=== PATIENT | female | born 1985 | race Caucasian/White ===

== ENCOUNTER 2020-05-26 05:15 | Inpatient (IN) | payer BC ==
[~2020-05-26 05:15] MED LIST: CITRIC ACID/SODIUM CITRATE 30 ML UNIT-DOSE CUP PO ONE; ELECTROLYTE-148 SOLN 500 ML IV ONE
[2020-05-26] MEDS ORDERED: ELECTROLYTE-148 SOLN 500 ML IV ONE ×2 (05:45→10:06)
[2020-05-26 05:58] LABS: BASO % 0.8 % (0-2.0); EOS % 0.8 % (0-4.5); HEMATOCRIT 35.5 % (32.4-45.2); LYMPH % 22.4 % (8-40); MCH 30.2 pg (25.7-33.7); MCHC 33.7 g/dl (32.0-36.0); MEAN CELL VOLUME 89.5 fl (80-96); MEAN PLT VOLUME 11.3 fl (7.5-11.1); MONO % 7.8 % (3.8-10.2); NEUT % 68.2 % (42.8-82.8); PLATELET COUNT 164 K/MM3 (134-434); RBC 3.97 M/mm3 (3.60-5.2); RDW 13.6 % (11.6-15.6); WHITE BLOOD COUNT 8.8 K/mm3 (4.0-10.0)
[2020-05-26 06:04] VITALS: BMI 32.4
[2020-05-26 06:12] LABS: INR 0.86 (0.83-1.09); PROTHROMBIN TIME (PATIENT) 10.1 SEC (9.7-13.0)
[2020-05-26 06:15] LABS: ACTIVATED PTT 25.4 SECONDS (25.2-36.5)
[2020-05-26 06:18] LABS: BLOOD UREA NITROGEN 7.2 mg/dL (7-18); CALCIUM 8.5 mg/dL (8.5-10.1); CREATININE 0.7 mg/dL (0.55-1.3); POTASSIUM 3.9 mmol/L (3.5-5.1)
[2020-05-26] MEDS ORDERED: OXYTOCIN 20 UNITS in 0.9% NS 20 UNIT/1,000 ML INFUS.BAG IV ONE (08:10)
[2020-05-26] MEDS ORDERED: PHENYLEPHRINE HCL 10 MG/1 ML SINGLE DOSE VIAL ONE (08:11)
[2020-05-26] MEDS ORDERED: ceFAZolin SODIUM 1 GM VIAL ONE (08:11)
[2020-05-26] MEDS ORDERED: morphine SULFATE/PF 0.5 MG/ML (2cc Syringe - QUVA) ONE (08:11)
[2020-05-26] MEDS ORDERED: SODIUM CHLORIDE 0.9% P/F 10 ML VIAL IJ ONE (08:15)
[2020-05-26] MEDS ORDERED: OXYTOCIN 10 UNITS/ML VIAL ONE (08:37)
[2020-05-26] MEDS ORDERED: ePHEDrine SULFATE 50 MG/1 ML AMPULE ONE (08:40)
[2020-05-26] MEDS ORDERED: KETOROLAC TROMETHAMINE 30 MG/1 ML VIAL ONE (09:01)
[2020-05-26] MEDS ORDERED: morphine SULFATE/PF 0.5 MG/ML (2cc Syringe - QUVA) EP ONE (09:13)
[2020-05-26] MEDS ORDERED: ONDANSETRON 4 MG/2 ML VIAL IVPUSH PRN (09:13)
[2020-05-26] MEDS ORDERED: CITRIC ACID/SODIUM CITRATE 30 ML UNIT-DOSE CUP PO ONE (10:06)
[2020-05-26] MEDS ORDERED: IBUPROFEN 600 MG TABLET (FP) PO PRN (10:09)
[2020-05-26] MEDS ORDERED: ACETAMINOPHEN 325 MG TABLET (FP) PO PRN (10:09)
[2020-05-26] MEDS ORDERED: oxyCODONE HCL 5 MG TABLET PO PRN ×2 (10:09)
[2020-05-26] MEDS ORDERED: IBUPROFEN 800 MG/8 ML IJ IVPB PRN (10:09)
[2020-05-26] MEDS ORDERED: METHYLERGONOVINE MALEATE 0.2 MG/1 ML AMP IM PRN (10:09)
[2020-05-26] MEDS ORDERED: SENNOSIDES/DOCUSATE COMBO (SENNA PLUS) TABLET (UD) PO PRN (10:09)
[2020-05-26] MEDS ORDERED: ELECTROLYTE-148 SOLN 1,000 ML IV SCH (10:15)
--- NOTE | 2020-05-26 10:15 | HP ---
Past Medical History - Primary Care Physician PCP:: Hira Garner - Admission Chief Complaint: repeat lt c s , btl History of Present Illness: same History Source: Patient Limitations to Obtaining History: No Limitations - Past Medical History PAPER LATCHER: No: Alzheimer's, CVA, Dementia, Migraine, Multiple Sclerosis, Peripheral Neuropathy, Parkinson's, Seizure, Syncope, TIA, Vertigo, Other Cardiovascular: No: AFIB, Aneurysm, Aortic Insufficiency, Aortic Stenosis, CAD, CHF, Deep Vein Thrombosis, HTN, Hyperlipdemia, VA, Mitral Insufficiency, Mitral Stenosis, Murmur, Pulmonary Hypertension, Other Pulmonary: No: Asthma, Bronchitis, Cancer, COPD, O2 Dependent, Pneumonia, Previously Intubated, Pulmonary Embolus, Pulmonary Fibrosis, Sleep Apnea, Other Gastrointestinal: No: Ascites, Cancer, Constipation, Crohn's Disease, Diverticulitis, Diverticulosis, Esophageal Varices, Gastritis, GERD, GI Bleed, Hemorrhoids, Hiatal Hernia, Inflamatory Bowel Disease, Irritable Bowel Disease, Pancreatitis, Peptic Ulcer Disease, Ulcerative Colitis, Other Hepatobiliary: No: Cirrhosis, Cholelithiasis, Cholecystitis, Choledocholithiasis, Hepatitis A, Hepatitis B, Hepatitis C, Other Renal/: No: Renal Failure, Renal Inusuff, BPH, Cancer, Hematuria, Hemodialysi s, Neurogenic Bladder, Renal Calculi, UTI, Other Reproductive: No: Ectopic , Endometriosis, Fibroids, PID, Polycystic Ovary Syndrome, Postmenopausal, Other ...: 4 ...Para: 3 ...Term: 3 ...: 0 ...Spon : 0 ...Induced : 0 ...Living Children: 3 ...Multiple Gestation: 0 ... Weeks Gestation by Dates: 38.2 ...EDC by Dates: 06/07/20 Heme/Onc: No: Anemia, B12 Deficiency, Bleeding Disorder, Cancer, Current Chemotherapy, Current Radiation Therapy, Hemochromatosis, Hypercoaguable State, Myeloproliferative Synd, Sickle Cell Disease, Sickle Cell Trait, Thrombocytopenia, Other Infectious Disease: No: AIDS, C-Diff, Herpes Zoster, HIV, MRSA, STD's, Tuberculosis, VREF, Other Psych: No: Addictions, Anxiety, Bipolar, Depression, Panic, Psychosis, Schizophrenia, Other Musculoskeletal: No: Bursitis, Chronic low back pain, Hemiparesis, Hemiplegia, Osteoarthritis, Paraplegia, Other Rheumatology: No: Fibromyalgia, Gout, Lupus, Rheumatoid Arthritis, Sarcoidosis, Vasculitis, Other ENT: No: Allergic Rhinitis, Sinusitis, Other Endocrine: No: [place]'s Disease, [place]'s Disease, Diabetes Insipidus, Diabetes Mellitus, Hyperparathyroidism, Hyperthyroidism, Hypothyroidism, Osteopenia, SIADH, Other Dermatology: No: Basal Cell, Cellulitis, Eczema, Melanoma, Psoriasis, Squamous Cell, Other - Past Surgical History Past Surgical History: Yes: Hx Myomectomy: No Hx Transabdominal Cerclage: No - Advance Directives Advance Directives: Yes: Living Will - Smoking History Smoking history: Never smoked Have you smoked in the past 12 months: No - Alcohol/Substance Use Hx Alcohol Use: No History of Substance Use: reports: None - Social History Usual Living Arrangement: Yes: With Significant Other Do you think of yourself as: Straight/Heterosexual ADL: Independent History of Recent Travel: No Home Medications - Allergies Allergies/Adverse Reactions: Allergies Allergy/AdvReac Type Severity Reaction Status Date / Time No Known Allergies Allergy Verified 05/26/20 06:16 - Home Medications Home Medications: Ambulatory Orders Vitamins (Sjr) - 1 tab PO DAILY 05/26/20 Family Medical History Family History: Denies Review of Systems - Review of Systems Constitutional: reports: No Symptoms Eyes: reports: No Symptoms HENT: reports: No Symptoms Neck: reports: No Symptoms Cardiovascular: reports: No Symptoms Respiratory: reports: No Symptoms Gastrointestinal: reports: No Symptoms Genitourinary: reports: No Symptoms Breasts: reports: No Symptoms Reported Musculoskeletal: reports: No Symptoms Integumentary: reports: No Symptoms Neurological: reports: No Symptoms Endocrine: reports: No Symptoms Hematology/Lymphatic: reports: No Symptoms Psychiatric: reports: No Symptoms Physical Exam - Maternity Vital Signs: Vital Signs Temperature 97.6 F 05/26/20 05:15 Pulse Rate 64 05/26/20 05:15 Respiratory Rate 18 05/26/20 05:15 Blood Pressure 118/72 05/26/20 05:15 O2 Sat by Pulse Oximetry (%) Constitutional: Yes: Well Nourished, No Distress, Calm Eyes: Yes: WNL, Conjunctiva Clear, EOM Intact HENT: Yes: WNL, Atraumatic, Normocephalic Neck: Yes: WNL, Supple, Trachea Midline Cardiovascular: Yes: WNL, Regular Rate and Rhythm Lungs: Clear to auscultation Breast(s): Yes: WNL - Abdominal Exam/OB Fundal Height: 38 Number of Fetuses: Single Presentation: Vertex Contractions: Yes Regularity: Irregular Intensity: Mild Monitor Mode: External Heart Rate (range): 140 Heart Rate Location: [facility] Category: I Accelerations: Uniform Decelerations: None - Vaginal Exam/OB Vaginal Bleeding: No Speculum Exam: No Dilatation (cm): 1 Effacement (%): 50 Amniotic Membrane Status: Intact Amniotic Fluid: Yes: Clear Meconium: Light Presentation: Vertex/Position Station: -2 - Physical Exam Musculoskeletal: Yes: WNL Extremities: Yes: WNL Edema: Yes Edema: LUE: 1+, RUE: 1+, LLE: 1+, RLE: 1+ Integumentary: Yes: WNL Deep Tendon Reflex Grade: Normal +2 ...Motor Strength: WNL Psychiatric: Yes: WNL, Alert, Oriented - Labs Lab Results: CBC, BMP 05/26/20 05:50 05/26/20 05:50 Hemorrhage Risk Assessment - Risk Factors Medium Risk Factors: Yes: Prior , uterine surgery,or multiple laparotomies High Risk Factors: Yes: Placenta previa, low lying Risk Score: 3 Risk Level: High Risk Assessment/Plan for repeat lt c s , btl
--- NOTE | 2020-05-26 10:17 | OP ---
Operative Note - Note: Operative Date: 05/26/20 Pre-Operative Diagnosis: repeat lt c s , btl Operation: repeat lt c s , btl Findings: no adhesions Post-Operative Diagnosis: Same as Pre-op Surgeon: Hira Garner Security Trainer: Daniel Marcus Anesthesiologist/OPERATIONS PLANT ATTENDANT: Nena Carrasco Anesthesia: Spinal Estimated Blood Loss (mls): 500 (no complications ) Operative Report Dictated: Yes
[2020-05-26] MEDS: OXYTOCIN 20 UNITS in 0.9% NS 20 UNIT/1,000 ML INFUS.BAG IV SCH ×2 (10:30→15:25)
[2020-05-27] MEDS: SIMETHICONE 80 MG TAB.CHEW (FP) PO PRN ×2 (04:30→14:23)
[2020-05-27] MEDS: IBUPROFEN 600 MG TABLET (FP) PO PRN ×2 (04:32→14:23)
[2020-05-27] MEDS: ACETAMINOPHEN 325 MG TABLET (FP) PO PRN ×2 (04:33→14:24)
[2020-05-27 08:07] LABS: BASO % 0.8 % (0-2.0); EOS % 0.3 % (0-4.5); HEMATOCRIT 36.7 % (32.4-45.2); HEMOGLOBIN 11.9 GM/dL (10.7-15.3); LYMPH % 8.3 % (8-40); MCH 29.3 pg (25.7-33.7); MCHC 32.4 g/dl (32.0-36.0); MEAN CELL VOLUME 90.3 fl (80-96); MEAN PLT VOLUME 10.9 fl (7.5-11.1); NEUT % 84.6 % (42.8-82.8); PLATELET COUNT 144 K/MM3 (134-434); RBC 4.07 M/mm3 (3.60-5.2); RDW 13.8 % (11.6-15.6)
[2020-05-27] MEDS: PRENATAL VITAMINS W/ FOLIC ACID TABLET (FP) PO SCH (09:14)
[2020-05-27] MEDS: ENOXAPARIN NA (PORCINE) 40 MG/0.4 ML DISP.SYRIN SQ SCH (09:15)
--- NOTE | 2020-05-27 09:34 | PN ---
Progress Note, Physician Chief Complaint: s/p c section post op day one History of Present Illness: duramorph for post op analgesia, under spinal anesthesia - Current Medication List Current Medications: Active Medications Acetaminophen (Tylenol -) 650 mg PO Q4H PRN PRN Reason: PAIN LEVEL 6-10 Last Admin: 05/27/20 04:33 Dose: 650 mg Documented by: Acetaminophen (Tylenol -) 650 mg PO Q4H PRN PRN Reason: FEVER Bisacodyl (Dulcolax Suppository -) 10 mg RC PRN PRN PRN Reason: CONSTIPATION Diphenhydramine HCl (Benadryl Injection -) 25 mg IVPUSH Q4H PRN PRN Reason: Pruritis Enoxaparin Sodium (Lovenox -) [address] [facility] Last Admin: 05/27/20 09:15 Dose: 40 mg Documented by: Oxytocin/Sodium Chloride (Normal Saline+20 Units Oxytocin -) 20 unit in 1,000 mls @ 125 mls/hr IV ASDIR [facility] Last Admin: 05/26/20 15:25 Dose: 125 mls/hr Documented by: Ibuprofen (Motrin -) 600 mg PO Q4H PRN PRN Reason: PAIN LEVEL 4 - 6 Last Admin: 05/27/20 04:32 Dose: 600 mg Documented by: Ibuprofen (Motrin -) 600 mg PO Q4H PRN PRN Reason: PAIN LEVEL 1 - 3 Ibuprofen (Caldolor Injection -) 800 mg IVPB Q8H PRN PRN Reason: PAIN LEVEL 6-10 Methylergonovine Maleate (Methergine Injection -) 0.2 mg IM Q4H PRN PRN Reason: Excessive Bleeding (L&D) Ondansetron HCl (Zofran Injection) 4 mg IVPUSH Q4H PRN PRN Reason: NAUSEA Oxycodone HCl (Roxicodone -) 5 mg PO Q4H PRN PRN Reason: PAIN LEVEL 4 - 6 Oxycodone HCl (Roxicodone -) 10 mg PO Q4H PRN PRN Reason: PAIN LEVEL 7 - 10 Multivit/Folic Acid/Iron ( Vitamins (Sjr) -) [address] [facility] Last Admin: 05/27/20 09:14 Dose: 1 tab Documented by: Senna/Docusate Sodium (Pericolace -) 2 tablet PO HS PRN PRN Reason: CONSTIPATION Simethicone (Mylicon -) 80 mg PO Q4H PRN PRN Reason: GAS Last Admin: 05/27/20 04:30 Dose: 80 mg Documented by: - Objective Vital Signs: Vital Signs Temperature 97.4 F L 05/27/20 08:58 Pulse Rate 68 05/27/20 08:58 Respiratory Rate 20 05/27/20 08:58 Blood Pressure 109/64 05/27/20 08:58 O2 Sat by Pulse Oximetry (%) 100 05/26/20 10:45 Constitutional: Yes: Well Nourished Cardiovascular: Yes: WNL Respiratory: Yes: WNL Gastrointestinal: Yes: WNL Labs: CBC, BMP 05/27/20 07:50 05/26/20 05:50 INR, PTT INR 0.86 (0.83-1.09) 05/26/20 05:50 Assessment/Plan Patient doing well, pain controlled, no nausea or vomiting, no anesthetic complications, dept of anesthesiology will sign off care at this time
[2020-05-27] MEDS ORDERED: BISACODYL 10 MG SUPP.RECT RC PRN (10:09)
--- NOTE | 2020-05-27 19:23 | PN ---
Post Progress Note Post Day: 1 Type of Delivery: Repeat C/S Vital Signs: Vital Signs Temperature 97.4 F L 05/27/20 08:58 Pulse Rate 68 05/27/20 08:58 Respiratory Rate 20 05/27/20 08:58 Blood Pressure 109/64 05/27/20 08:58 O2 Sat by Pulse Oximetry (%) 100 05/26/20 10:45 Breast Exam: Yes: Soft Uterus: Yes: Fundus Firm Incision: Yes: Dressing dry and intact, Sutures intact Abdomen/GI: Yes: Abdomen soft, Passing flatus, Tolerating PO Lochia: Yes: Serosa Lochia, amount: Small Extremities: Yes: Calves non-tender Perineum: Yes: Intact Activity: Ambulating - Labs Labs: CBC WBC 12.0 K/mm3 (4.0-10.0) H 05/27/20 07:50 RBC 4.07 M/mm3 (3.60-5.2) 05/27/20 07:50 Hgb 11.9 GM/dL (10.7-15.3) 05/27/20 07:50 Hct 36.7 % (32.4-45.2) 05/27/20 07:50 MCV 90.3 fl (80-96) 05/27/20 07:50 MCH 29.3 pg (25.7-33.7) 05/27/20 07:50 MCHC 32.4 g/dl (32.0-36.0) 05/27/20 07:50 RDW 13.8 % (11.6-15.6) 05/27/20 07:50 Plt Count 144 K/MM3 (134-434) 05/27/20 07:50 MPV 10.9 fl (7.5-11.1) 05/27/20 07:50 Absolute Neuts (auto) 10.2 K/mm3 (1.5-8.0) H 05/27/20 07:50 Neutrophils % 84.6 % (42.8-82.8) H D 05/27/20 07:50 Lymphocytes % 8.3 % (8-40) D 05/27/20 07:50 Monocytes % 6.0 % (3.8-10.2) 05/27/20 07:50 Eosinophils % 0.3 % (0-4.5) 05/27/20 07:50 Basophils % 0.8 % (0-2.0) 05/27/20 07:50 Nucleated RBC % 0 % (0-0) 05/27/20 07:50 Other Findings, Remarks: dc pt home tomorrow
--- NOTE | 2020-05-27 19:25 | DS ---
Physical Exam-RIG BUILDER Vital Signs: Vital Signs Temperature 97.4 F L 05/27/20 08:58 Pulse Rate 68 05/27/20 08:58 Respiratory Rate 20 05/27/20 08:58 Blood Pressure 109/64 05/27/20 08:58 O2 Sat by Pulse Oximetry (%) 100 05/26/20 10:45 Constitutional: Yes: Well Nourished, No Distress, Calm Eyes: Yes: WNL, Conjunctiva Clear, EOM Intact HENT: Yes: WNL, Atraumatic, Normocephalic Neck: Yes: WNL, Supple, Trachea Midline Cardiovascular: Yes: WNL, Regular Rate and Rhythm Respiratory: Yes: WNL, Regular, CTA Bilaterally Gastrointestinal: Yes: WNL, Normal Bowel Sounds, Soft ...Rectal Exam: Yes: WNL Renal/: Yes: WNL Pelvis: Yes: WNL External Genitalia: Yes: Normal Internal Exam Deferred: Yes Vaginal Exam: Yes: Normal Cervix: Yes: Normal Uterus: Yes: Normal Adnexa: Normal: Bilateral ....Post : Yes: Uterus firm, Uterus non-tender Breast(s): Yes: WNL Musculoskeletal: Yes: WNL Extremities: Yes: WNL Edema: Yes Edema: LUE: 1+, RUE: 1+, LLE: 1+, RLE: 1+ Integumentary: Yes: WNL Wound/Incision: Yes: Clean/Dry, Well Approximated Neurological: Yes: WNL, Alert, Oriented ...Motor Strength: WNL Psychiatric: Yes: WNL, Alert, Oriented Labs: CBC, BMP 05/27/20 07:50 05/26/20 05:50 Delivery - Delivery Vaginal Delivery: No Problems Section: Repeat Type of Anesthesia: Spinal Episiotomy/Laceration: None EBL (cc): 500 Delivery, Single - Stages of Labor Date of Delivery: 05/26/20 Time of Delivery: 08:45 Time Placenta Delivered: 08:46 - Condition of Flower Maker/Plant Senior Manager Present: No Infant Gender: Male Weight: 2.92 kg Position: Left, OA Total Hours ROM (Hrs/Mins): 0/2 - 1 Minute Total Score: 9 5 Minutes Total Score: 9 - [place] Feeding Plan Initial Plan: Exclusive throughout hospitalization Discharge Summary Problems reviewed: Yes Reason For Visit: SCHEDULED C/SECTION Procedures: Principal: repeat lt c s, btl Other Procedures: none Hospital Course: uneventful Health Concerns: none Condition: Good - Instructions Diet, Activity, Other Instructions: Physical activity Resume your normal everyday activity as tolerated no heavy lifting or exercise until seen by your surgeon. You may walk unlimited ines of and climb stairs. You may resume driving the car when you feel safe and comfortable behind the wheel. No sexual activity as instructed. Wound care If you have a bandage, leave it on, and keep dry for 48-72 hours. After that time discard the outer bandage. If they are tapes on the skin under the out of bandage leave them in place. They will peel off in the next 7 to 10 days. Do Not Peel them off. You may shower the day after surgery. If there are tapes present on the skin, you may shower over them. Diet There are no dietary restrictions. Eat healthy, high-fiber foods. Drink 6 to 8 glasses of liquid each day. This will assist in keeping your bowels are regular. Pain management You may take Tylenol or acetaminophen or Ibuprofen (for example, Motrin, Advil etc.) from my pain prescription medication is ordered should be taken as prescribed for moderate to severe pain. Call MD for any of the following: call dr oshea for 2 weeks appointment Severe pain not relieved by medication Fever of 101 or higher Excessive bleeding or drainage on dressing Inability to urinate Disposition: HOME - Home Medications Comprehensive Discharge Medication List: Ambulatory Orders Vitamins (Sjr) - 1 tab PO DAILY 05/26/20 Prescription Drug Monitoring Program (I-STOP) results: I-STOP reviewed and no issues identified
[2020-05-28] MEDS: ACETAMINOPHEN 325 MG TABLET (FP) PO PRN ×2 (05:34→09:48)
[2020-05-28] MEDS: IBUPROFEN 600 MG TABLET (FP) PO PRN ×2 (05:34→09:47)
[2020-05-28 08:44] VITALS: BP 119/82; PULSE 56; TEMP 98.4
[2020-05-28] MEDS: ENOXAPARIN NA (PORCINE) 40 MG/0.4 ML DISP.SYRIN SQ SCH (09:47)
[2020-05-28] MEDS: SIMETHICONE 80 MG TAB.CHEW (FP) PO PRN (09:47)
[2020-05-28] MEDS: PRENATAL VITAMINS W/ FOLIC ACID TABLET (FP) PO SCH (09:49)
--- NOTE | 2020-05-28 11:48 | OP ---
DATE OF OPERATION: 05/26/2020 PREOPERATIVE DIAGNOSIS: Repeat low transverse section and bilateral tubal ligation. POSTOPERATIVE DIAGNOSIS: Repeat low transverse section and bilateral tubal ligation. PROCEDURE: Repeat low transverse section and bilateral tubal ligation. SURGEON: Hira Garner MD DIRECTOR OF RESIDENTIAL SERVICES: KIM Moreno ANESTHESIOLOGIST: MINERVA Gamble ANESTHESIA: Spinal anesthesia. INDICATION: This is a 35-year-old female patient, 38 and 3 days , history of low-lying placenta during this , and this is a repeat low transverse x4 in order to prevent bleeding from the low-lying placenta, so patient was done at 38 weeks and 3 days . All the risks and benefits, alternatives were explained to the patient including future , ectopic, nonreversible, and the risks of tubal ligation were explained. Patient did decline any other family planning methods, insists on a tubal ligation. DESCRIPTION OF PROCEDURE: Patient was taken to the OR and placed on the operating table in supine position after spinal anesthesia was obtained. The patient's abdomen and pelvis were prepped and draped in the usual sterile manner. Pfannenstiel incision was made. Incision was made through skin and subcutaneous tissue until the fascia was nicked in the midline, then fascia extended bilaterally. Intraperitoneal cavity was entered. Bladder flap was not created. Low transverse segment was entered, baby delivered from the LOT position. Baby was handed over to the hospital education coordinator after umbilical cord doubly clamped and cut. Cord blood gas was not obtained. Placenta was removed, uterus closed in single layer. No bleeding from the lower segment area of uterus, and good hemostasis. Then we proceeded to the tubal ligation part. Both isthmic ends of fallopian tubes were grasped by Jose De Jesus and doubly transected and suture ligated. Good hemostasis. Both gutters clean. Both ovaries, fallopian tubes, uterus were within normal limits. No complications. End of the tubes were bovied and coagulated, good hemostasis. Draining clear urine. Bladder was 100 mL. Peritoneum was closed. Fascia was closed. Skin was closed. Transferred to recovery room in stable condition. MD LELIA RECINOS/[id number]
--- NOTE | 2020-06-01 17:15 | PATH ---
Surgical Pathology Report Patient Name: NOLA HAWTHORNE [facility]. Rec. #: [id number] /Age/Gender: 1985 (Age: 35) / F Account: [id number] Location: [facility] OBS/FUNERAL HOME MANAGER Taken: 05/26/2020 Received: 05/27/2020 Reported: 06/01/2020 Physicians: Hira Garner MD Specimen(s) Received A: PLACENTA B: RIGHT FALLOPIAN TUBE C: LEFT FALLOPIAN TUBE Clinical History , 38.2 weeks, low lying placenta Final Diagnosis A. PLACENTA: THIRD TRIMESTER PLACENTA WITH PERIVILLOUS FIBRIN DEPOSITION, SMALL FOCUS OF INFARCTION (3 MM IN GREATEST DIMENSION), AND FOCAL CHRONIC DECIDUITIS. TRIVASCULAR CORD. MEMBRANES WITH NO DIAGNOSTIC ABNORMALITIES. B. PORTION OF RIGHT FALLOPIAN TUBE, RESECTION: COMPLETE CROSS SECTION OF THE FALLOPIAN TUBE LUMEN IDENTIFIED. C. PORTION OF LEFT FALLOPIAN TUBE, RESECTION: COMPLETE CROSS SECTION OF THE FALLOPIAN TUBE LUMEN IDENTIFIED. Electronically Signed Lane Escalona M.D. Gross Description A. The specimen is received fresh labeled placenta and is a 427 gram, 18.0 x 15.5 x 2.5 cm. placenta with attached membranes and umbilical cord. The attached membranes are thompson, translucent with focal opacities and insert marginally. The umbilical cord measures 73 cm. in length and averages 0.8 cm. in diameter. The cord inserts eccentrically, 1.5 cm. to the nearest margin. No true knots or strictures are identified. Cut surface of the umbilical cord reveals 3 vessels. The surface is platt-blue with minimal fibrin deposition and appropriate caliber vessels. The maternal surface is red-brown with focal defects. Sectioning reveals red-brown, spongy parenchyma. No lesions are identified. Bricklayer Helper sections are submitted in three cassettes as follows: 1- membrane rolls and umbilical cord; 2-3- full thickness sections of placenta. B. Received in formalin labeled "portion of right fallopian tube," is a 1.5 cm in length portion of fallopian tube. The outer surface is thompson-pink and smooth. Sectioning reveals an unremarkable lumen. Bricklayer Helper sections are submitted in one cassette. C. Received in formalin labeled "portion of left fallopian tube," is a 0.6 cm in length portion of fallopian tube. No fimbria are present. The outer surface is thompson-pink and smooth. Sectioning reveals an unremarkable lumen. The specimen is bisected and entirely submitted in one cassette. 05/27/2020 saudi05/27/2020
== END 2020-05-28 11:45 | disposition home or self-care (01) | DRG 785 ==
LOC: JLDR 05:15 → J3W 11:25
PROVIDERS: ADMIT Obstetrics & Gynecology; ATTEND Obstetrics & Gynecology
PROC: 10D00Z1 Extraction of Products of Conception, Low, Open Approach (ICD-10-PCS; principal; 2020-05-26)
PROC: 0UL70ZZ Occlusion of Bilateral Fallopian Tubes, Open Approach (ICD-10-PCS; 2020-05-26)
DX: O34.219 Maternal care for unspecified type scar from previous cesarean delivery (principal); Z3A.38 38 weeks gestation of pregnancy; Z37.0 Single live birth; Z30.2 Encounter for sterilization
CPT/HCPCS: 36415; 80048; 85025; 85610; 85730; 86780; 86850; 86900; 86901; 87389; 88302-TC; 88307-TC